=== PATIENT | male | born 1995 | race American Indian/Alaskan Native ===

== ENCOUNTER 2019-10-08 00:48 | Emergency (ER) | payer BC ==
[2019-10-08 01:06] VITALS: BP 135/81
--- NOTE | 2019-10-08 02:01 | XRay Report ---
CHEST 2 VIEWS INDICATION / CLINICAL INFORMATION: cough. COMPARISON: None available. FINDINGS: SUPPORT DEVICES: None. HEART / MEDIASTINUM: No significant abnormality. LUNGS / PLEURA: No significant pulmonary or pleural abnormality. No pneumothorax. ADDITIONAL FINDINGS: No significant additional findings. IMPRESSION: 1. No acute findings. Signer Name: Olivia Cortez MD Signed: 10/08/2019 1:57 AM Workstation Name: [id number]
--- NOTE | 2019-10-08 03:35 | Emergency Department Report ---
Minor Respiratory - HPI Chief Complaint: Fever Stated Complaint: POSS FEVER, SLIGHT COUGH Time Seen by Provider: 10/08/19 02:36 Severity: mild Minor Respiratory: Yes Able to Tolerate Fluids, Yes Cough, No Rhinorrhea, No S ore Throat, No Ear Pain, No Sick Contacts, No Hemoptysis, No Chest Pain, No Shortness of Breath, No Fever Other History: This is a 24-year-old male presents the ED complaining of fever and intermittent coughing for the past 2 days. Patient states only relevant travel was by air to [employer] 09/22/2019. Patient denies any sick contact. Patient states that he has a little bit of body aches but no chest pain no shortness of breath ED Review of Systems ROS: Stated complaint: POSS FEVER, SLIGHT COUGH Other details as noted in HPI Comment: All other systems reviewed and negative ED Past Medical Hx - Past Medical History Previous Medical History?: No - Surgical History Past Surgical History?: No - Social History Smoking Status: Never Smoker Substance Use Type: None Minor Respiratory Exam - Exam General: Vital signs noted. No distress. Alert and acting appropriately. HEENT: Yes Moist Mucous Membranes, No Pharyngeal Erythema, No Pharyngeal Exudates, No Rhinorrhea, No Conjuctival Injection, No Frontal Tenderness, No Maxillary Tenderness Ear: Neither TM Bulge, Neither TM Erythema, Neither EAC Pain, Neither EAC Discharge Neck: Yes Supple, No Adenopathy Lungs: Yes Good Air Exchange, No Wheezes, No Ronchi, No Stridor, No Cough, No Labored Respirations, No Retractions, No Use of Accessory Muscles, No Other Abnormal Lung Sounds Heart: Yes Regular, No Murmur Abdomen: Yes Normal Bowel Sounds, No Tenderness, No Peritoneal Signs Skin: No Rash, No Edema Neurologic: Alert and oriented, no deficits. Musculoskeletal: Unremarkable. ED Course Vital Signs 10/08/19 01:01 Temperature 99.4 F Pulse Rate 55 L Respiratory 20 Rate Blood Pressure 135/81 O2 Sat by Pulse 99 Oximetry ED Medical Decision Making - Radiology Data Radiology results: report reviewed, image reviewed XRay Report Signed Patient: THERESA FORRESTER MR#: [id number] : 1995 Acct:[id number] Age/Sex: 24 / M ADM Date: 10/08/19 Loc: ED Attending Dr: Ordering Physician: ED DOCMD Date of Service: 10/08/19 Procedure(s): XR chest routine 2V Accession Number(s): [id number] cc: ED DOC, Fluoro Time In Minutes: CHEST 2 VIEWS INDICATION / CLINICAL INFORMATION: cough. COMPARISON: None available. FINDINGS: SUPPORT DEVICES: None. HEART / MEDIASTINUM: No significant abnormality. LUNGS / PLEURA: No significant pulmonary or pleural abnormality. No pneumothorax. ADDITIONAL FINDINGS: No significant additional findings. IMPRESSION: 1. No acute findings. Signer Name: Olivia Cortez MD Signed: 10/08/2019 1:57 AM Workstation Name: [id number] Transcribed By: DT Dictated By: Ángel Cortez MD Electronically Authenticated By: Ángel Cortez MD Signed Date/Time: 10/08/19 0157 - Medical Decision Making 24-year-old male presents with flulike symptoms. no fever during the ED stay. Chest x-ray shows no acute findings. Discussed with patient Discussed with mother symptomatic relief with [id number] medications. Discussed continue Tylenol and Motrin as needed for fever and pain. Discussed increase fluids and diet intake. Discussed rest much needed. Discussed daily vitamin C for immune booster. Discussed follow-up with primary care physician in 3-5 days. Patient verbally states he understands and will comply the following instruc tions and follow-up Vital signs stable. Patient is in no acute or respiratory distress Discussed with patient if he has any worsening symptoms to return to ED immediately Critical care attestation.: If time is entered above; I have spent that time in minutes in the direct care of this critically ill patient, excluding procedure time. ED Disposition Clinical Impression: Upper respiratory infection Disposition: DC-01 TO HOME OR SELFCARE Is pt being admited?: No Does the pt Need Aspirin: No Condition: Stable Instructions: Upper Respiratory Infection (ED), Viral Syndrome (ED) Additional Instructions: Make sure to follow up with the primary care physician as discussed. Take Motrin or Tylenol for pain, Robitussin for coughing. These medications are [id number] which you can get If you have any worsening symptoms or develop new symptoms please return to ED immediately. Referrals: PRIMARY CARE, [Primary Care Provider] - 3-5 Days [facility] [Outside] - 3-5 Days [facility] [Outside] - 3-5 Days Forms: Accompanied Note, Work/School Release Form(ED) Time of Disposition: 03:39
== END 2019-10-08 03:48 | disposition home or self-care (01) ==
LOC: ED 00:48
DX: J06.9 Acute upper respiratory infection, unspecified (principal)
CPT/HCPCS: 71046

== ENCOUNTER 2022-02-12 09:49 | Emergency (ER) | payer SELFPAY ==
--- NOTE | 2022-02-12 10:35 | Emergency Department Report ---
ED Fall HPI - General Chief Complaint: Chest Pain Stated Complaint: CHEST PAIN/CANT SLEEP Time Seen by Provider: 02/12/22 10:15 Source: patient Mode of arrival: Ambulatory Limitations: No Limitations - History of Present Illness Initial Comments: Patient is a 26-year-old male that comes to the emergency room with anterior chest wall pain. He states 4 days ago he was at work working on a car. He slipped falling hitting his chest on the car door. Since then he has had pain of his anterior chest. Is worse with movement. Patient denies any shortness of breath. His vital signs are stable. He has no bruising, lacerations or abrasions. This was a witnessed fall. It was mechanical. He denies any prodrome of illness. Patient is ambulatory, nontoxic [id number] on arrival to the ER. -: Sudden, days(s) Fall From: standing Fall Witnessed: yes, by family Place Fall Occurred: work Loss of Consciousness: none Symptoms Prior to Fall: none Severity scale (0 -10): 1 Context: tripped/slipped Associated Symptoms: denies - Related Data Allergies Allergy/AdvReac Type Severity Reaction Status Date / Time No Known Allergies Allergy Unverified 10/08/19 01:12 ED Review of Systems ROS: Stated complaint: CHEST PAIN/CANT SLEEP Other details as noted in HPI Comment: All other systems reviewed and negative ED Past Medical Hx - Past Medical History Previous Medical History?: No - Surgical History Past Surgical History?: No - Family History Family history: no significant - Social History Smoking Status: Never Smoker Substance Use Type: None ED Physical Exam - General Limitations: No Limitations General appearance: alert, in no apparent distress - Head Head exam: Present: atraumatic, normocephalic - Eye Eye exam: Present: normal appearance - ENT ENT exam: Present: mucous membranes moist - Neck Neck exam: Present: normal inspection - Respiratory Respiratory exam: Present: normal lung sounds bilaterally. Absent: respiratory distress - Cardiovascular Cardiovascular Exam: Present: regular rate, normal rhythm. Absent: systolic murmur, diastolic murmur, rubs, gallop - GI/Abdominal GI/Abdominal exam: Present: soft, normal bowel sounds - Rectal Rectal exam: Present: deferred - Extremities Exam Extremities exam: Present: normal inspection - Back Exam Back exam: Present: normal inspection - Neurological Exam Neurological exam: Present: alert, oriented X3 - Psychiatric Psychiatric exam: Present: normal affect, normal mood - Skin Skin exam: Present: warm, dry, intact, normal color. Absent: rash ED Course Vital Signs 02/12/22 10:07 Temperature 98.9 F Pulse Rate 50 L Respiratory 14 Rate Blood Pressure 123/87 O2 Sat by Pulse 98 Oximetry ED Medical Decision Making - Radiology Data Radiology results: report reviewed, image reviewed [facility] - Medical Decision Making Vital Signs 02/12/22 10:07 Temperature 98.9 F Pulse Rate 50 L Respiratory 14 Rate Blood Pressure 123/87 O2 Sat by Pulse 98 Oximetry xray nap Patient educated on care and management of his contusion. Patient being discharged home with discharge plan of care including activity, medications and follow-up. He verbalizes understanding of plan of care. - Differential Diagnosis ro fx Critical care attestation.: If time is entered above; I have spent that time in minutes in the direct care of this critically ill patient, excluding procedure time. ED Disposition Clinical Impression: Contusion Qualifiers: Encounter type: initial encounter Front or back of thoracic wall: front Disposition: HOME / SELF CARE / HOMELESS Is pt being admited?: No Does the pt Need Aspirin: No Condition: Stable Instructions: Contusion Additional Instructions: Warm compresses to the chest alternate Tylenol and Motrin for pain Follow-up with PCP if pain persist. Have given you referral below. All of your x-rays were normal today. Referrals: AGUSTIN TRISTAN MD [Staff Physician] - 3-5 Days Time of Disposition: 11:50
--- NOTE | 2022-02-12 10:46 | XRay Report ---
XR chest routine 2V INDICATION / CLINICAL INFORMATION: pain. COMPARISON: 10/08/2019 FINDINGS: SUPPORT DEVICES: None. HEART /PULMONARY VASCULATURE: No significant abnormality. LUNGS / PLEURA: No significant pulmonary or pleural abnormality. No pneumothorax. ADDITIONAL FINDINGS: No significant additional findings. IMPRESSION: 1. No acute findings. Signer Name: John Perales MD Signed: 02/12/2022 10:42 AM Workstation Name: [id number]
[2022-02-12 13:21] VITALS: BP 131/78
== END 2022-02-12 13:20 | disposition home or self-care (01) ==
LOC: ED 09:49
DX: S20.219A Contusion of unspecified front wall of thorax, initial encounter (principal); W18.39XA Other fall on same level, initial encounter; Y93.89 Activity, other specified; Y92.89 Other specified places as the place of occurrence of the external cause; Y99.8 Other external cause status
CPT/HCPCS: 71046; 99283